=== PATIENT | female | born 1985 | race Two or more races ===

== ENCOUNTER → 2019-08-01 | Outpatient (CLI) | payer OTHER | END | disposition home or self-care (01) | LOC: PRENATAL 09:00 | DX: O36.80X1 Pregnancy with inconclusive fetal viability, fetus 1 (principal); O09.523 Supervision of elderly multigravida, third trimester ==

== ENCOUNTER → 2019-09-23 | Outpatient (CLI) | payer OTHER | END | disposition home or self-care (01) | LOC: PRENATAL 09:00 | PROVIDERS: ATTEND Specialist | DX: O35.3XX1 Maternal care for (suspected) damage to fetus from viral disease in mother, fetus 1 (principal); O09.522 Supervision of elderly multigravida, second trimester; O34.211 Maternal care for low transverse scar from previous cesarean delivery ==

== ENCOUNTER 2020-01-10 13:15 | Inpatient (IN) | payer OTHER ==
[~2020-01-10] VITALS: Ht 160 cm; Wt 72.6 kg
[2020-01-10] MEDS ORDERED: PRENATAL TABLE1 EAC1 PO (15:51)
[2020-01-13] MEDS ORDERED: NIFEDIPINE ER30 MG PO (09:43)
== END 2020-01-13 12:54 | disposition home or self-care (01) | DRG 833 ==
LOC: OBS/DEL 13:15 → OB/GYN 01-11 08:29 → LDR 01-11 08:29 → OB/GYN 01-11 11:29
PROVIDERS: ADMIT Specialist; ATTEND Specialist
PROC: BY4FZZZ Ultrasonography of Third Trimester, Single Fetus (ICD-10-PCS; principal; 2020-01-11)
PROC: 4A1HXCZ Monitoring of Products of Conception, Cardiac Rate, External Approach (ICD-10-PCS; 2020-01-11)
DX: O60.03 Preterm labor without delivery, third trimester (principal); Z20.828 Contact with and (suspected) exposure to other viral communicable diseases; Z3A.35 35 weeks gestation of pregnancy

== ENCOUNTER 2020-01-17 08:00 | Outpatient (CLI) | payer OTHER ==
[~2020-01-17 08:00] MED LIST: NIFEDIPINE ER30 MG PO; PRENATAL TABLE1 EAC1 PO
== END 2020-01-17 15:00 | disposition home or self-care (01) ==
LOC: LAB 08:00 → OB/GYN 01-24 10:45 → EDSTATUS 01-24 10:45
PROVIDERS: ATTEND Specialist
DX: Z03.818 Encounter for observation for suspected exposure to other biological agents ruled out (principal); Z20.828 Contact with and (suspected) exposure to other viral communicable diseases

== ENCOUNTER 2020-01-20 07:02 | Inpatient (IN) | payer OTHER ==
[~2020-01-20] VITALS: Ht 160 cm; Wt 3.2 kg
[2020-01-23] MEDS ORDERED: PERCOCET 5-3251 EACH PO (07:48)
== END 2020-01-23 13:40 | DRG 785 ==
LOC: SURG-SUITE 07:02 → LDR 07:02 → O/R 10:27 → SURG-SUITE 11:35
PROVIDERS: ADMIT Specialist; ATTEND Specialist
PROC: 0UB70ZZ Excision of Bilateral Fallopian Tubes, Open Approach (ICD-10-PCS; 2020-01-20)
PROC: 4A1HXCZ Monitoring of Products of Conception, Cardiac Rate, External Approach (ICD-10-PCS; 2020-01-20)
PROC: 10D00Z1 Extraction of Products of Conception, Low, Open Approach (ICD-10-PCS; principal; 2020-01-20 09:00)
DX: O82 Encounter for cesarean delivery without indication (principal); O34.211 Maternal care for low transverse scar from previous cesarean delivery; Z20.828 Contact with and (suspected) exposure to other viral communicable diseases; Z3A.39 39 weeks gestation of pregnancy; Z37.0 Single live birth; Z30.2 Encounter for sterilization